=== PATIENT | female | born 2000 | race African-American/Black ===

== ENCOUNTER 2021-04-15 20:03 | Emergency (ER) | payer MEDICAID | END 2021-04-15 21:20 | disposition home or self-care (01) | LOC: CSHERS 20:03 | DX: M79.641 Pain in right hand (principal); E78.00 Pure hypercholesterolemia, unspecified | CPT/HCPCS: 99283 ==

== ENCOUNTER 2021-06-25 21:41 | Emergency (ER) | payer MEDICAID ==
[2021-06-25] MEDS ORDERED: Ondansetron PF 4 MG/2 ML Vial ONE (23:05)
[2021-06-25 23:37] LABS: ALT (SGPT) 24 U/L (8-55); AST (SGOT) 23 U/L (5-30); Albumin 4.3 g/dL (3.5-5.0); Alkaline Phosphatase 64 U/L (40-100); Anion Gap 17 mmol/L (10-20); BUN (Urea Nitrogen) 7 mg/dL (8.4-21.0); Bilirubin, Total 0.4 mg/dL (0.2-1.2); Calc. Creatinine Clearance 0 mL/min (70-130); Calcium 9.4 mg/dL (7.8-10.44); Carbon Dioxide 17 mmol/L (22-29); Chloride 105 mmol/L (98-107); Globulin 4.1 g/dL (2.4-3.5); Glucose 118 mg/dL (70-105); Lipase 13 U/L (8-78); Magnesium 1.8 mg/dL (1.7-2.2); Potassium 4.3 mmol/L (3.5-5.1); Protein, Total 8.4 g/dL (6.0-8.3); Sodium 135 mmol/L (136-145)
[2021-06-25 23:49] LABS: #Monocytes 0.4 10x3/uL (0.0-1.1); #Neutrophils 11.2 10x3/uL (1.5-8.4); %Basophils 0.1 % (0.0-2.0); %Eosinophils 0.1 % (0.0-6.0); %Lymphocytes 4.9 % (18.0-47.0); %Monocytes 3.4 % (0.0-10.0); %Neutrophils 91.1 % (40.0-75.0); Hemoglobin 12.3 g/dL (12.0-15.5); Mean Corpuscular HGB CONC 31.8 g/dL (32.0-36.0); Mean Corpuscular Hemoglobin 27.8 pg (27.0-33.0); Mean Corpuscular Volume 87.6 fl (81.6-98.3); Mean Platelet Volume 9.2 fl (7.4-10.4); Platelet Count 326 10x3/uL (150-450); RBC Distribution Width 13.9 % (11.5-14.5); Red Blood Cell (RBC) Count 4.42 10x6/uL (3.90-5.03); White Blood Cell (WBC) Count 12.3 10x3/uL (3.5-10.5)
== END 2021-06-26 01:37 | disposition home or self-care (01) ==
LOC: CSHERS 21:41
DX: O99.611 Diseases of the digestive system complicating pregnancy, first trimester (principal); K29.70 Gastritis, unspecified, without bleeding; O99.281 Endocrine, nutritional and metabolic diseases complicating pregnancy, first trimester; E78.00 Pure hypercholesterolemia, unspecified; Z3A.01 Less than 8 weeks gestation of pregnancy
CPT/HCPCS: 36415; 80053; 83690; 83735; 84702; 85025; 96374; J2405

== ENCOUNTER 2021-10-17 18:45 | Day surgery (SDC) | payer OTHER ==
[2021-10-17] MEDS ORDERED: Ondansetron PF 4 MG/2 ML Vial IVP PRN (19:26)
[2021-10-17] MEDS ORDERED: hydrALAZINE 20 MG/ML VIAL SLOW IVP PRN (19:26)
[2021-10-17 19:48] VITALS: BMI 33.3
[2021-10-17] MEDS ORDERED: Ondansetron ODT 4 MG TAB SL PRN (19:50)
[2021-10-17 20:06] LABS: Bilirubin Neg (Negative); Blood, Urine 250 (Negative); Clarity Clear (Clear); Glucose, Urine (Dipstick) Normal (Negative); Ketone, Urine 5 mg/dL (Negative); Leukocyte 25 (Negative); Nitrite Negative (Negative); Protein, Urine (Dipstick) 30 mg/dl (Neg-Trace); Urobilinogen Normal mg/dL (Less than 2)
[2021-10-17 20:09] LABS: Urine Culture Reflex No No
[2021-10-17 20:15] LABS: Bacteria/HPF 1+ HPF (None Seen); RBC/HPF 21-50 HPF (0-3); Squamous Epithelial 0-3 HPF (0-3)
== END 2021-10-17 20:40 | disposition home or self-care (01) ==
LOC: CSHLD/OP 18:45
PROVIDERS: ATTEND Obstetrics & Gynecology
DX: O99.891 Other specified diseases and conditions complicating pregnancy (principal); R10.30 Lower abdominal pain, unspecified; Z3A.23 23 weeks gestation of pregnancy; Z91.012 Allergy to eggs
CPT/HCPCS: 51701; 81001; 87086; 99282; Q0162

== ENCOUNTER 2022-02-06 00:15 | Inpatient (IN) | payer OTHER ==
[2022-02-06] MEDS ORDERED: hydrALAZINE 20 MG/ML VIAL SLOW IVP PRN ×2 (01:12→03:04)
[2022-02-06] MEDS ORDERED: Carboprost 250 MCG/ML AMP IM PRN (03:04)
[2022-02-06] MEDS ORDERED: Docusate 100 MG CAP PO PRN (03:04)
[2022-02-06] MEDS ORDERED: Misoprostol 200 MCG TAB PR PRN (03:04)
[2022-02-06] MEDS ORDERED: Ondansetron PF 4 MG/2 ML Vial IVP PRN ×2 (03:04→14:07)
[2022-02-06] MEDS ORDERED: Butorphanol Tartrate 1 MG/ML VIAL SLOW IVP PRN (03:04)
[2022-02-06] MEDS ORDERED: Promethazine HCl 25 MG/ML VIAL IM PRN ×2 (03:04→14:07)
[2022-02-06] MEDS ORDERED: Lidocaine 1% (PF) 30 ML VIAL SC PRN (03:04)
[2022-02-06] MEDS ORDERED: Diphenoxylate HCl/Atropine Tablet PO PRN (03:04)
[2022-02-06] MEDS ORDERED: Methylergonovine 0.2 MG/ML VIAL IM PRN (03:04)
[2022-02-06] MEDS ORDERED: Acetaminophen 500 MG TAB PO PRN (03:04)
[2022-02-06] MEDS ORDERED: NS w/ Oxytocin 30 units 500 ML IV SCH ×2 (03:15)
[2022-02-06 04:37] VITALS: BMI 38.2
[2022-02-06 05:24] LABS: Hemoglobin 10.3 g/dL (12.0-15.5); Mean Corpuscular HGB CONC 31.6 g/dL (32.0-36.0); Mean Corpuscular Hemoglobin 25.2 pg (27.0-33.0); Mean Corpuscular Volume 79.7 fl (81.6-98.3); Mean Platelet Volume 10.8 fl (7.4-10.4); Platelet Count 244 10x3/uL (150-450); RBC Distribution Width 15.3 % (11.5-14.5); Red Blood Cell (RBC) Count 4.09 10x6/uL (3.90-5.03); White Blood Cell (WBC) Count 10.4 10x3/uL (3.5-10.5)
[2022-02-06 05:53] LABS: HBSAg Index 0.28 S/CO (0-0.99); Hep B Surf Ag Non-Reactive S/CO (NonReactive); Syphilis Antibody Nonreactive (Nonreactive); Syphilis Antibody Index 0.05 S/CO (<1.00 Non-Reactive)
[2022-02-06 05:54] LABS: SARS-CoV-2 NAA Rapid Test Not Detected (NotDetected)
[2022-02-06] MEDS ORDERED: Lidocaine 2% PF 5 ML VIAL ONE (08:00)
[2022-02-06] MEDS ORDERED: Bupivacaine 0.25% HCL 30 ML VIAL ONE (08:00)
[2022-02-06] MEDS ORDERED: Bupivacaine/Epinephrine 0.25% 30 ML VIAL ONE (08:00)
[2022-02-06] MEDS: Lactated Ringer's 1,000 ML IV SCH ×3 (13:48→17:21)
[2022-02-06] MEDS ORDERED: Moisturizing Cream (Eucerin) 113 GM JAR TOP PRN (14:07)
[2022-02-06] MEDS ORDERED: ePHEDrine Sulfate 50 MG/10 ML VIAL SLOW IVP PRN (14:07)
[2022-02-06] MEDS ORDERED: Acetaminophen 325 MG TAB PO PRN (14:07)
[2022-02-06] MEDS ORDERED: Lactated Ringer's 500 ML IV PRN (14:07)
[2022-02-06] MEDS ORDERED: Naloxone HCl 0.4 mg/ml Vial IVP PRN ×2 (14:07)
[2022-02-06] MEDS ORDERED: diphenhydrAMINE 50 MG/ML VIAL IVP PRN (14:07)
[2022-02-06] MEDS ORDERED: Fentanyl 2 mcg/Bup 0.1% Cadd 100 ML ONE (14:08)
[2022-02-06] MEDS ORDERED: Communication Order-Pharmacy FS SCH (14:15)
[2022-02-06] MEDS: Fentanyl 2 mcg/Bupivacaine 0.1% Cassette 100 ML EPIDURAL SCH (14:23)
[2022-02-06] MEDS ORDERED: Butorphanol Tartrate 1 MG/ML VIAL SLOW IVP SCH (17:00)
[2022-02-06] MEDS ORDERED: Butorphanol Tartrate 1 MG/ML VIAL ONE (19:37)
[2022-02-06] MEDS ORDERED: Fentanyl 100 MCG/2 ML VIAL ONE (19:40)
[2022-02-06] MEDS: CEFAZOLIN 2 GM in Sodium Chloride 0.9% 100 ML IVPB SCH (21:46)
[2022-02-07] MEDS: Fentanyl 2 mcg/Bupivacaine 0.1% Cassette 100 ML EPIDURAL SCH (03:41)
[2022-02-07] MEDS ORDERED: HYDROcodone/Acetaminophen 5/325 mg Tablet PO PRN (08:52)
[2022-02-07] MEDS ORDERED: Promethazine HCl 25 MG/ML VIAL IM PRN (08:52)
[2022-02-07] MEDS ORDERED: hydrALAZINE 20 MG/ML VIAL SLOW IVP PRN (08:52)
[2022-02-07] MEDS ORDERED: Varicella virus, LIVE 0.5 ML VIAL SC ONE (08:52)
[2022-02-07] MEDS ORDERED: Lanolin Ointment 7 GM TUBE TOP PRN (08:52)
[2022-02-07] MEDS ORDERED: Milk Of Magnesia 30 ML UDCUP PO PRN (08:52)
[2022-02-07] MEDS ORDERED: NS w/ Oxytocin 30 units 500 ML IV SCH (08:52)
[2022-02-07] MEDS ORDERED: Methylergonovine 0.2 MG/ML VIAL IM PRN (08:52)
[2022-02-07] MEDS ORDERED: Bisacodyl 10 MG SUPP PR PRN (08:52)
[2022-02-07] MEDS ORDERED: Boostrix 0.5 ML (Tdap) VIAL (>/=7 yrs of age) IM ONE (08:52)
[2022-02-07] MEDS ORDERED: Measles/Mumps/Rubella 10 MCG/0.5 ML VIAL SC ONE (08:52)
[2022-02-07] MEDS ORDERED: diphenhydrAMINE 25 MG CAP PO PRN (08:52)
[2022-02-07] MEDS ORDERED: Benzocaine-Menthol 82.5 ML CAN TOP PRN (08:52)
[2022-02-07] MEDS ORDERED: Preparation H Ointment 28 GM TUBE PR PRN (08:52)
[2022-02-07] MEDS ORDERED: Misoprostol 200 MCG TAB VAG PRN (08:52)
[2022-02-07] MEDS ORDERED: Zolpidem Tartrate 5 MG TAB PO PRN (08:52)
[2022-02-07] MEDS ORDERED: Ondansetron PF 4 MG/2 ML Vial IVP PRN (08:52)
[2022-02-07] MEDS ORDERED: Ferrous Sulfate 325 MG TAB PO SCH (09:00)
[2022-02-07] MEDS: Docusate 100 MG CAP PO SCH ×2 (11:37→21:31)
[2022-02-07] MEDS: Prenatal Vitamin 1 TAB PO SCH (11:37)
[2022-02-07] MEDS: CEFAZOLIN 2 GM in Sodium Chloride 0.9% 100 ML IVPB SCH (11:40)
[2022-02-07] MEDS: Lactated Ringer's 1,000 ML IV SCH (11:40)
[2022-02-07] MEDS: Ibuprofen 800 MG TAB PO SCH ×2 (13:30→21:31)
[2022-02-07] MEDS: Ferrous Sulfate 325 MG TAB PO SCH (16:05)
[2022-02-08] MEDS: Ibuprofen 800 MG TAB PO SCH ×2 (05:24→13:46)
[2022-02-08 05:30] LABS: Hemoglobin 7.9 g/dL (12.0-15.5); Mean Corpuscular HGB CONC 31.5 g/dL (32.0-36.0); Mean Corpuscular Hemoglobin 25.7 pg (27.0-33.0); Mean Corpuscular Volume 81.8 fl (81.6-98.3); Mean Platelet Volume 10.3 fl (7.4-10.4); Platelet Count 224 10x3/uL (150-450); RBC Distribution Width 15.6 % (11.5-14.5); Red Blood Cell (RBC) Count 3.07 10x6/uL (3.90-5.03); White Blood Cell (WBC) Count 12.5 10x3/uL (3.5-10.5)
[2022-02-08] MEDS: Docusate 100 MG CAP PO SCH (08:26)
[2022-02-08] MEDS: Prenatal Vitamin 1 TAB PO SCH (08:26)
[2022-02-08] MEDS: Ferrous Sulfate 325 MG TAB PO SCH ×2 (08:26→18:01)
[2022-02-08 18:55] VITALS: BP 120/76; TEMP 98
== END 2022-02-08 21:30 | disposition home or self-care (01) | DRG 807 ==
LOC: CSHLD/OP 00:15 → CSHLD 03:36 → CSHPED 02-07 09:00
PROVIDERS: ADMIT Obstetrics & Gynecology; ATTEND Obstetrics & Gynecology
PROC: 10E0XZZ Delivery of Products of Conception, External Approach (ICD-10-PCS; principal; 2022-02-07)
PROC: 3E0P7VZ Introduction of Hormone into Female Reproductive, Via Natural or Artificial Opening (ICD-10-PCS; 2022-02-07)
DX: O41.1230 Chorioamnionitis, third trimester, not applicable or unspecified (principal); Z37.0 Single live birth; Z3A.39 39 weeks gestation of pregnancy; Z20.822 Contact with and (suspected) exposure to COVID-19; Z91.012 Allergy to eggs
CPT/HCPCS: 36415; 51702; 85027; 86780; 86850; 86900; 86901; 87340; 88307; 99285; J0690; J2001; J2405; J2590; J3010; J3490; J7120; S0020; U0002

== ENCOUNTER 2022-02-24 11:05 | Emergency (ER) | payer OTHER ==
[2022-02-24 11:57] LABS: #Eosinphils 0.1 10x3/uL (0.0-0.5); #Monocytes 0.6 10x3/uL (0.0-1.1); #Neutrophils 6.8 10x3/uL (1.5-8.4); %Basophils 0.3 % (0.0-2.0); %Eosinophils 0.7 % (0.0-6.0); %Lymphocytes 15.2 % (18.0-47.0); %Monocytes 6.7 % (0.0-10.0); %Neutrophils 76.6 % (40.0-75.0); Hemoglobin 11.4 g/dL (12.0-15.5); Mean Corpuscular HGB CONC 30.9 g/dL (32.0-36.0); Mean Corpuscular Hemoglobin 24.9 pg (27.0-33.0); Mean Corpuscular Volume 80.7 fl (81.6-98.3); Mean Platelet Volume 9.6 fl (7.4-10.4); Platelet Count 356 10x3/uL (150-450); RBC Distribution Width 15.9 % (11.5-14.5); Red Blood Cell (RBC) Count 4.57 10x6/uL (3.90-5.03); White Blood Cell (WBC) Count 8.8 10x3/uL (3.5-10.5)
[2022-02-24 12:00] LABS: Bilirubin Neg (Negative); Blood, Urine 250 (Negative); Clarity Sl. Cloudy (Clear); Glucose, Urine (Dipstick) Normal (Negative); Ketone, Urine Negative (Negative); Leukocyte 500 (Negative); Nitrite Negative (Negative); Protein, Urine (Dipstick) 100 mg/dl (Neg-Trace); Specific Gravity, Urine 1.015 (1.005-1.030); Urobilinogen Normal mg/dL (Less than 2); pH, Urine 6.5 (5.0-9.0)
[2022-02-24 12:14] LABS: ALT (SGPT) 15 U/L (8-55); AST (SGOT) 22 U/L (5-34); Albumin 3.9 g/dL (3.5-5.0); Alkaline Phosphatase 107 U/L (40-100); Anion Gap 15 mmol/L (10-20); BUN (Urea Nitrogen) 10 mg/dL (7.0-18.7); Bilirubin, Total 0.4 mg/dL (0.2-1.2); Calc. Creatinine Clearance 0 mL/min (70-130); Calcium 9.4 mg/dL (7.8-10.44); Carbon Dioxide 23 mmol/L (22-29); Chloride 102 mmol/L (98-107); Estimated GFR 113; Globulin 3.9 g/dL (2.4-3.5); Glucose 97 mg/dL (70-105); Potassium 4.1 mmol/L (3.5-5.1); Protein, Total 7.8 g/dL (6.0-8.3); Sodium 136 mmol/L (136-145)
[2022-02-24 12:45] LABS: RBC/HPF Greater than 50 HPF (0-3)
[2022-02-24 12:47] LABS: Bacteria/HPF 2+ HPF (None Seen); Mucous/LPF 2+ LPF (<2+); Squamous Epithelial 0-3 HPF (0-3); Transitional Epithelial 0-3 HPF (None Seen)
[2022-02-24] MEDS ORDERED: Ketorolac Tromethamine 30 MG/ML VIAL ONE (12:51)
== END 2022-02-24 13:27 | disposition home or self-care (01) ==
LOC: CSHERS 11:05
DX: N13.2 Hydronephrosis with renal and ureteral calculous obstruction (principal); R82.71 Bacteriuria; E78.00 Pure hypercholesterolemia, unspecified
CPT/HCPCS: 36415; 74176; 80053; 81003; 81015; 85025; 87086; 96372; J1885

== ENCOUNTER 2023-01-02 20:54 | Emergency (ER) | payer OTHER ==
[2023-01-02 22:03] LABS: SARS-CoV-2 NAA Rapid Test DETECTED (NotDetected)
== END 2023-01-02 23:59 | disposition home or self-care (01) ==
LOC: CSHERS 20:54
DX: O98.513 Other viral diseases complicating pregnancy, third trimester (principal); U07.1 COVID-19; Z3A.38 38 weeks gestation of pregnancy
CPT/HCPCS: 99283

== ENCOUNTER 2023-01-08 08:23 | Inpatient (IN) | payer OTHER ==
[2023-01-08 08:43] VITALS: BMI 40.4
[2023-01-08] MEDS ORDERED: Misoprostol 200 MCG TAB PR PRN (11:14)
[2023-01-08] MEDS ORDERED: fentaNYL 50 mcg/mL 1 mL Vial SLOW IVP PRN (11:14)
[2023-01-08] MEDS ORDERED: Ondansetron PF 4 MG/2 ML Vial IVP PRN ×3 (11:14→22:24)
[2023-01-08] MEDS ORDERED: Carboprost 250 MCG/ML AMP IM PRN (11:14)
[2023-01-08] MEDS ORDERED: Butorphanol Tartrate 1 MG/ML VIAL SLOW IVP PRN (11:14)
[2023-01-08] MEDS ORDERED: Lidocaine 1% (PF) 30 ML VIAL SC PRN (11:14)
[2023-01-08] MEDS ORDERED: Diphenoxylate HCl/Atropine Tablet PO PRN (11:14)
[2023-01-08] MEDS ORDERED: Methylergonovine 0.2 MG/ML VIAL IM PRN ×2 (11:14→22:24)
[2023-01-08] MEDS ORDERED: Ibuprofen 800 MG TAB PO PRN (11:14)
[2023-01-08] MEDS ORDERED: Docusate 100 MG CAP PO PRN (11:14)
[2023-01-08] MEDS ORDERED: Promethazine HCl 25 MG/ML VIAL IM PRN ×3 (11:14→22:24)
[2023-01-08] MEDS ORDERED: hydrALAZINE 20 MG/ML VIAL SLOW IVP PRN ×2 (11:14→22:24)
[2023-01-08] MEDS ORDERED: Acetaminophen 500 MG TAB PO PRN (11:14)
[2023-01-08] MEDS ORDERED: Oxytocin 30 units/NS 500 ML 500 ML IV SCH ×4 (11:15→22:30)
[2023-01-08] MEDS ORDERED: Misoprostol 100 MCG TAB VAG SCH (11:15)
[2023-01-08] MEDS ORDERED: fentaNYL/Ropivacaine Epidural 100 ML ONE (12:16)
[2023-01-08 12:20] LABS: Hematocrit 32.5 % (34.9-44.5); Hemoglobin 9.7 g/dL (12.0-15.5); Mean Corpuscular HGB CONC 29.8 g/dL (32.0-36.0); Mean Corpuscular Hemoglobin 21.7 pg (27.0-33.0); Mean Corpuscular Volume 72.9 fl (81.6-98.3); Mean Platelet Volume 9.6 fl (7.4-10.4); Platelet Count 338 10x3/uL (150-450); RBC Distribution Width 18.1 % (11.5-14.5); Red Blood Cell (RBC) Count 4.46 10x6/uL (3.90-5.03); White Blood Cell (WBC) Count 11.1 10x3/uL (3.5-10.5)
[2023-01-08] MEDS ORDERED: Bupivacaine 0.25% HCL 30 ML VIAL ONE ×2 (13:00→13:10)
[2023-01-08 13:01] LABS: Syphilis Antibody Nonreactive (Nonreactive); Syphilis Antibody Index 0.05 S/CO (<1.00 Non-Reactive)
[2023-01-08 13:04] LABS: HBSAg Index 0.17 S/CO (0-0.99); Hep B Surf Ag - L&D Non-Reactive S/CO (NonReactive)
[2023-01-08] MEDS ORDERED: ePHEDrine Sulfate 50 MG/10 ML VIAL SLOW IVP PRN (13:31)
[2023-01-08] MEDS ORDERED: Moisturizing Cream (Eucerin) 113 GM JAR TOP PRN (13:31)
[2023-01-08] MEDS ORDERED: Naloxone HCl 0.4 mg/ml Vial IVP PRN ×2 (13:31)
[2023-01-08] MEDS ORDERED: Lactated Ringer's 500 ML IV PRN (13:31)
[2023-01-08] MEDS ORDERED: diphenhydrAMINE 50 MG/ML VIAL IVP PRN (13:31)
[2023-01-08] MEDS ORDERED: Communication Order-Pharmacy FS SCH (13:45)
[2023-01-08] MEDS ORDERED: fentaNYL 2 mcg/Ropivacaine 0.2% Epidural 100 ML CADD EPIDURAL SCH (13:45)
[2023-01-08] MEDS ORDERED: diphenhydrAMINE 25 MG CAP PO PRN (22:24)
[2023-01-08] MEDS ORDERED: Milk Of Magnesia 30 ML UDCUP PO PRN (22:24)
[2023-01-08] MEDS ORDERED: Measles/Mumps/Rubella 10 MCG/0.5 ML VIAL SC ONE (22:24)
[2023-01-08] MEDS ORDERED: Benzocaine-Menthol 82.5 ML CAN TOP PRN (22:24)
[2023-01-08] MEDS ORDERED: Lanolin Ointment 7 GM TUBE TOP PRN (22:24)
[2023-01-08] MEDS ORDERED: Preparation H Ointment 28 GM TUBE PR PRN (22:24)
[2023-01-08] MEDS ORDERED: Varicella virus, LIVE 0.5 ML VIAL SC ONE (22:24)
[2023-01-08] MEDS ORDERED: Boostrix 0.5 ML (Tdap) VIAL (>/=7 yrs of age) IM ONE (22:24)
[2023-01-08] MEDS ORDERED: Misoprostol 200 MCG TAB VAG PRN (22:24)
[2023-01-08] MEDS ORDERED: Bisacodyl 10 MG SUPP PR PRN (22:24)
[2023-01-08] MEDS ORDERED: Ibuprofen 800 MG TAB PO SCH (23:45)
[2023-01-09] MEDS: Lactated Ringer's 1,000 ML IV SCH ×2 (02:50→21:07)
[2023-01-09] MEDS: Misoprostol 100 MCG TAB VAG SCH ×2 (02:51→21:13)
[2023-01-09] MEDS: Ibuprofen 800 MG TAB PO SCH ×3 (06:02→21:22)
[2023-01-09] MEDS: Ferrous Sulfate 325 MG TAB PO SCH ×2 (07:58→16:53)
[2023-01-09] MEDS: Prenatal Vitamin 1 TAB PO SCH (07:58)
[2023-01-09] MEDS: Acetaminophen 325 MG TAB PO PRN ×2 (07:58→19:38)
[2023-01-09] MEDS: Docusate 100 MG CAP PO SCH ×2 (07:58→21:22)
[2023-01-09] MEDS ORDERED: Zolpidem Tartrate 5 MG TAB PO PRN (10:31)
[2023-01-10] MEDS: Ibuprofen 800 MG TAB PO SCH (05:05)
[2023-01-10] MEDS ORDERED: Polyethylene Glycol 3350 17 GM Packet PO SCH (05:30)
[2023-01-10 08:20] VITALS: BP 129/76; TEMP 97.6
[2023-01-10] MEDS: Docusate 100 MG CAP PO SCH (09:20)
[2023-01-10] MEDS: Prenatal Vitamin 1 TAB PO SCH (09:20)
[2023-01-10] MEDS: Ferrous Sulfate 325 MG TAB PO SCH (09:20)
== END 2023-01-10 11:35 | disposition home or self-care (01) | DRG 807 ==
LOC: CSHLD/OP 08:23 → CSHLD 12:11 → CSHANTE 01-09 01:30
PROVIDERS: ADMIT Obstetrics & Gynecology; ATTEND Obstetrics & Gynecology
PROC: 10E0XZZ Delivery of Products of Conception, External Approach (ICD-10-PCS; principal; 2023-01-08)
PROC: 10907ZC Drainage of Amniotic Fluid, Therapeutic from Products of Conception, Via Natural or Artificial Opening (ICD-10-PCS; 2023-01-08)
PROC: 3E033VJ Introduction of Other Hormone into Peripheral Vein, Percutaneous Approach (ICD-10-PCS; 2023-01-08)
DX: O80 Encounter for full-term uncomplicated delivery (principal); Z37.0 Single live birth; Z3A.39 39 weeks gestation of pregnancy
CPT/HCPCS: 51702; 85027; 86780; 86850; 86900; 86901; 87340; 99285; J2405; J2590; S0020

== ENCOUNTER 2023-05-28 21:52 | Emergency (ER) | payer OTHER ==
[2023-05-28 22:20] LABS: Bilirubin Neg (Negative); Blood, Urine 150 (Negative); Clarity Clear (Clear); Glucose, Urine (Dipstick) Normal (Negative); Ketone, Urine Negative (Negative); Leukocyte 100 (Negative); Nitrite Negative (Negative); Protein, Urine (Dipstick) 30 mg/dl (Neg-Trace); Specific Gravity, Urine 1.025 (1.005-1.030); Urobilinogen Normal mg/dL (Less than 2)
[2023-05-28] MEDS ORDERED: Ondansetron PF 4 MG/2 ML Vial ONE (22:45)
[2023-05-28] MEDS ORDERED: Ketorolac Tromethamine 30 MG (1 mL) VIAL ONE (22:45)
[2023-05-28 22:59] LABS: Bacteria/HPF Rare-Few HPF (None Seen); CAUTI Indications for Culture Pelvic or flank pain; Squamous Epithelial 0-3 HPF (0-3)
[2023-05-28 23:00] LABS: Urine Culture Reflex No No
[2023-05-28 23:04] LABS: #Eosinphils 0.2 10x3/uL (0.0-0.5); #Monocytes 0.8 10x3/uL (0.0-1.1); %Basophils 0.3 % (0.0-2.0); %Eosinophils 1.6 % (0.0-6.0); %Lymphocytes 23.2 % (18.0-47.0); %Monocytes 6.4 % (0.0-10.0); Hematocrit 37.5 % (34.9-44.5); Hemoglobin 11.7 g/dL (12.0-15.5); Mean Corpuscular HGB CONC 31.2 g/dL (32.0-36.0); Mean Corpuscular Hemoglobin 24.6 pg (27.0-33.0); Mean Corpuscular Volume 78.8 fl (81.6-98.3); Mean Platelet Volume 9.5 fl (7.4-10.4); Platelet Count 375 10x3/uL (150-450); RBC Distribution Width 15.9 % (11.5-14.5); Red Blood Cell (RBC) Count 4.76 10x6/uL (3.90-5.03); White Blood Cell (WBC) Count 11.7 10x3/uL (3.5-10.5)
[2023-05-28 23:12] LABS: BHCG - Serum Negative (NEGATIVE); Pregs Control Background? CLEAR/WHITE (CLR/WHITE); Pregs Control Bar Appear? YES (CONTROL BAR)
[2023-05-28 23:17] LABS: ALT (SGPT) 45 U/L (8-55); AST (SGOT) 30 U/L (5-34); Albumin 4.2 g/dL (3.5-5.0); Alkaline Phosphatase 81 U/L (40-110); Anion Gap 17 mmol/L (10-20); BUN (Urea Nitrogen) 11 mg/dL (7.0-18.7); Bilirubin, Total 0.4 mg/dL (0.2-1.2); Calc. Creatinine Clearance 0 mL/min (70-130); Calcium 9.1 mg/dL (7.8-10.44); Carbon Dioxide 20 mmol/L (22-29); Chloride 107 mmol/L (98-107); Estimated GFR 104; Globulin 3.8 g/dL (2.4-3.5); Glucose 107 mg/dL (70-105); Potassium 3.9 mmol/L (3.5-5.1); Sodium 140 mmol/L (136-145)
[2023-05-29] MEDS ORDERED: HYDROcodone/Acetaminophen 5/325 mg Tablet ONE (00:06)
== END 2023-05-28 23:52 | disposition home or self-care (01) ==
LOC: CSHERS 21:52
DX: N13.2 Hydronephrosis with renal and ureteral calculous obstruction (principal)
CPT/HCPCS: 74176; 80053; 81001; 84703; 85025; 96374; 96375; J1885; J2405